=== PATIENT | female | born 1985 | race Caucasian/White ===

== ENCOUNTER 2019-06-28 12:16 | Emergency (ER) | payer OTHER, SELFPAY ==
--- NOTE | ~2019-06-28 | CT_ITS ---
EXAMINATION: CT abdomen pelvis wo con DATE: 06/28/2019 14:32 INDICATION: Right flank pain. Nausea. TECHNIQUE: Computed tomography (CT) of the abdomen and pelvis was performed without intravenous contr ast. Automated exposure control and iterative reconstruction technique were employed. The dose-length product was 758.13 mGy-cm. COMPARISON: None. FINDINGS: The visualized portions of the lung bases demonstrate mild atelectasis. No pleural effusion . The heart size is normal. No pericardial effusion. The liver, spleen, pancreas, adrenal glands, and kidneys are normal. There is no urolithiasis. There are changes of cholecystectomy. There are no dil ated loops of bowel. The appendix is normal. There are no pathologically enlarged lymph nodes. There is no free intraperitoneal fluid. There is mild thoracolumbar spondylosis. IMPRESSION: 1. No etiology for the patient's symptoms. Reviewed, dictated and finalized at location A. ANICAL DRAFTER
--- NOTE | ~2019-06-28 | XR_ITS ---
EXAMINATION: XR abdomen/kub 1V EXAM DATE: 06/28/2019 13:14 INDICATION: Right flank pain. TECHNIQUE: Frontal projection(s) of the abdomen for interpretation. There is no prior study for hiral garcia. FINDINGS: There is expected amount of colonic stool and gas. No small bowel dilation, nonobstructiv e bowel gas pattern. Calcifications in the pelvis are believed to be phleboliths. There is no orga nomegaly suspected. The bones are unremarkable. There are cholecystectomy clips. IMPRESSION: Pelvic calcifications, likely phleboliths. Reviewed, dictated and finalized at location B. ING MILL OPERATOR
[2019-06-28 12:24] VITALS: BP 149/94; PULSE 92; RESP 22; TEMP 36.5; O2SAT 100
--- NOTE | 2019-06-28 12:44 | ED.ABDPAIN ---
HPI - Abdominal Pain General Chief Complaint: Urogenital-Female Stated Complaint: right side pain Time Seen by Provider: 06/28/19 12:17 Source: patient Mode of arrival: ambulatory Limitations: no limitations History of Present Illness HPI narrative: Patient is a 34-year-old female who presents to emergency department for evaluation of right-sided abdominal pain is a 3 out of 10 pain worse with activity and movement patient denies any vomiting diarrhea vaginal discharge or urinary symptoms. Patient notes some right vaginal bleeding. Patient denies injury or trauma or similar occurrence. Patient presents per private vehicle and has not taken anything for her symptoms Related Data Allergies Allergy/AdvReac Type Severity Reaction Status Date / Time No Known Allergies Allergy Verified 06/28/19 12:32 Review of Systems Review of Systems: Narrative: CONSTITUTIONAL: Denies fever, chills, or sweats. EYES: Denies redness, or discharge. ENT: Denies rhinorrhea, congestion, sore throat, or otalgia. RESPIRATORY: Denies cough or dyspnea. GASTROINTESTINAL: Denies nausea, vomiting, or diarrhea. GENITOURINARY: Denies dysuria or hematuria. SKIN: Denies rash or itching. MUSCULOSKELETAL: Denies back pain, joint pain, or myalgia. NEUROLOGIC: Denies headache, or weakness. [facility] Surgical History Surgical History Hx of cholecystectomy Family History Family History (Updated 01/12/14 @ 07:13 by DOCTOR UNKNOWN) Mother Hypertension Grandparent Family history of malignant neoplasm Family history of heart disease in male family member before age 55 Diabetes mellitus Social History Social History Smoking status: Smoker, status unknown Alcohol intake: never Gender identity (if verbalized by the patient): Female Exam Narrative: Exam Narrative: GENERAL: Well-appearing, well-nourished, and in no acute distress. HEAD: Normocephalic, atraumatic. EYES: PERRLA and EOMI. ENT: Nares clear, no rhinorrhea or epistaxis. Mucous membranes moist. CHEST: Clear to auscultation. No respiratory distress. No wheezes rales or rhonchi HEART: Regular rate and rhythm. No murmur heard. Normal peripheral pulses. ABDOMEN: Soft, nontender, nondistended EXTREMITIES: Normal range of motion. No edema. SKIN: Warm, dry, no rash. NEURO: No focal deficits. Alert and oriented x3. Cranial nerves II through XII grossly intact. Normal speech and gait PSYCH: Normal mood and affect. Course Course Emergency Course: Patient in the room in no distress aware of case findings treatment plan and diagnosis agreeing to follow-up as directed or to return if symptoms worsen or concerns patient is afebrile nontoxic-appearing no distress felt appropriate for outpatient reevaluation provided with reasons to return Vital Signs Vital signs: Vital Signs Temperature 97.7 F 06/28/19 12:24 Pulse Rate 92 06/28/19 12:24 Respiratory Rate 22 H 06/28/19 12:24 Blood Pressure 149/94 H 06/28/19 12:24 Pulse Oximetry 100 06/28/19 12:24 Temperature 97.7 F 06/28/19 12:24 Pulse Rate 92 06/28/19 12:24 Respiratory Rate 22 H 06/28/19 12:24 Blood Pressure 149/94 H 06/28/19 12:24 Pulse Oximetry 100 06/28/19 12:24 MDM - Abdominal Pain MDM Narrative Medical decision making narrative: Patient with flank pain of uncertain etiology patient in the room in no distress at this time afebrile nontoxic-appearing no distress no high risk changes in the blood work or imaging felt appropriate for outpatient reevaluation patient provided with reasons to return Lab Data Labs: Urine Characteristics Clots Discharge Plan Discharge Clinical Impression: Acute right flank pain Patient Disposition: Home, Self-Care Condition: Stable Instructions: Antibiotic Form, Flank Pain (ED) Additional Instructions: Follow up with your primary ca
[2019-06-28 12:51] LABS: Basophils Percent Auto 0.3 % (0.2-1.2); Eosinophils Absolute Auto 0.1 K/mm3 (0-0.3); Eosinophils Percent Auto 1.7 % (0-4.4); Hemoglobin 12.7 g/dL (12.0-15.0); Immature Granulocyte Absolute 0.02 K/mm3 (0.00-0.031); Immature Granulocyte Percent A 0.3 % (0-0.5); Lymphocytes Absolute Auto 2.75 K/mm3 (0.9-3.2); Lymphocytes Percent Auto 35.1 % (18.3-44.2); Mean Corpuscular HGB Conc 32.6 g/dl (32-36); Mean Corpuscular Hemoglobin 29.4 pg (26-34); Mean Corpuscular Volume 90.3 fl (80-100); Mean Platelet Volume 9.3 fl (7.4-10.4); Monocytes Absolute Auto 0.6 K/mm3 (0.1-0.6); Monocytes Percent Auto 7.9 % (2.6-8.5); Neutrophils Absolute Auto 4.3 K/mm3 (1.3-6.7); Neutrophils Percent Auto 54.7 % (45.5-73.1); Platelet Count Result 327 k/mm3 (150-375); Red Blood Count 4.32 M/mm3 (4.2-5.4); Red Cell Distribution Width 12.3 % (11.5-14.5); White Blood Count 7.8 K/mm3 (4.5-10.0)
[2019-06-28 13:02] LABS: Add Urine Microscopic? YES; Appearance Urine Clear (Clear); Bacteria Urine Trace /hpf; Bilirubin Urine Negative (Negative); Blood Urine 1+ (Negative); Color Urine Yellow (Yellow); Glucose Urine UA Negative (Negative); Ketones Urine Negative (Negative); Leukocyte Esterase Ur Negative LEU/UL (Negative); Mucus Urine Rare /lpf; Nitrate Urine Negative (Negative); Protein Urine Negative (Negative); RBC Urine 0-2 /hpf (0-2); Specific Grav Ur 1.019 (1.001-1.035); Squamous Epithelial Cell Urine Few /hpf (Few); Urobilinogen Urine Negative mg/dL (<2.0); WBC Urine 0-3 /hpf
[2019-06-28 13:03] LABS: Alanine Aminotransferase 28 U/L (4-35); Albumin Level 4.7 g/dL (3.5-5.1); Alkaline Phosphatase 92 U/L (38-126); Aspartate Amino Transferase 24 U/L (14-36); Bilirubin,Total 0.3 mg/dL (0.2-1.3); Blood Urea Nitrogen 12 mg/dL (7-17); Calcium 9.7 mg/dL (8.4-10.2); Carbon Dioxide 27 mmol/L (22-30); Chloride 101 mmol/L (98-107); Estimated CRCL calculation 121 ml/min; Estimated Glomerular Filt Rate > 60; Glucose 95 mg/dL (65-105); Potassium 3.7 mmol/L (3.4-5.0); Sodium 139 mmol/L (137-145)
== END 2019-06-28 15:07 | disposition home or self-care (01) ==
PROVIDERS: Emergency Medicine Emergency Medical Services; Emergency Provider Emergency Medicine; PCP Family Medicine
DX: R10.9 Unspecified abdominal pain (principal)
CPT/HCPCS: 36415; 74018; 74176; 80053; 81001; 81025; 85025; 99284

== ENCOUNTER 2020-01-09 15:27 | Outpatient (CLI) | payer OTHER, SELFPAY | END 2020-01-09 15:28 | disposition home or self-care (01) | LOC: ANHSURGERY 15:28 | PROVIDERS: PCP Family Medicine; Visit Provider Obstetrics & Gynecology | DX: Z01.818 Encounter for other preprocedural examination (principal); D21.9 Benign neoplasm of connective and other soft tissue, unspecified | CPT/HCPCS: 36415; 86850; 86900; 86901 ==

== ENCOUNTER 2020-01-16 01:13 | Outpatient (CLI) | payer OTHER, SELFPAY ==
[2020-01-16 16:17] LABS: SARS-CoV-2 RNA PCR Negative
== END 2020-01-16 01:14 | disposition home or self-care (01) ==
LOC: ANHCOVIDDT 01:13
PROVIDERS: PCP Family Medicine; Visit Provider Obstetrics & Gynecology
DX: Z01.812 Encounter for preprocedural laboratory examination (principal); Z20.828 Contact with and (suspected) exposure to other viral communicable diseases
CPT/HCPCS: 87635; C9803; U0003

== ENCOUNTER 2020-01-18 00:28 | Day surgery (SDC) | payer OTHER, SELFPAY ==
[2020-01-04 13:37] VITALS: BMI 35.2
[2020-01-18] VITALS (12 sets, daily range): BP systolic 111–138; BP diastolic 66–79; PULSE 67–92; RESP 12–16; TEMP 36.3–37.1; O2SAT 93–100
--- NOTE | 2020-01-18 08:04 | PM.IMHP ---
H&P: HPI History of Present Illness Date/Time: 01/18/20 08:04 Chief complaint: pain, dyspareunia, fibroid Narrative: 34 y/o with a myomatous uterus and chronic, recurrent pelvic pain. She has had a tubal ligation and endometrial ablation. She has no vaginal bleeding. However, her episodes of pain are becoming more frequent. Most recently, she had a sharp pain in the RLQ which prompted a CT. Appendicitis was ruled out. She is interested in definitive management. Review of Systems Review of Systems: All systems reviewed & are unremarkable except as noted in HPI and below PMFSH Surgical History Surgical History H/O excision of ganglion cyst History of endometrial ablation History of tubal ligation Hx of cholecystectomy Family History Family History Mother Hypertension Grandparent Family history of malignant neoplasm Family history of heart disease in male family member before age 55 Diabetes mellitus Social History Social History Smoking packs per day: 1 Smoking cigarettes per day: 20.0 Years smoked: 8 Smoking pack-years: 8.00 Smoking status: Smoker, status unknown Tobacco type: cigarettes Additional smoking assessment comments: CURRENT VAPOR CIGARETTE X1 YR, QUIT CIGARETTES 1 YEAR AGO Alcohol intake: never Gender identity (if verbalized by the patient): Female Spiritual care concerns: No Meds Home Medications and Allergies Home Medications Medication Instructions Recorded Confirmed Type albuterol sulfate [ProAir HFA] 1 inh INHALATION QID PRN 01/04/20 01/04/20 History multivitamin 1 tablet PO DAILY 01/04/20 01/04/20 History Allergies Allergy/AdvReac Type Severity Reaction Status Date / Time No Known Allergies Allergy Unverified 01/04/20 13:30 Exam Const: Orientation/consciousness: patient oriented x3 Other: Well-developed, well-nourished female in no acute distress. Neck: Thyroid: thyroid normal Lymphatic: no lymphadenopathy noted (in neck, axilla or inguinal nodes) Resp: Effort & Inspection: normal respiratory effort Auscultation: clear to auscultation bilaterally Cardio: Rate: regular rate Rhythm: regular rhythm Heart sounds: S1 normal heart sound present and S2 normal heart sound present GI: Other: ABD: Soft, nontender, nondistended. No guarding or rebound tenderness. No hepatosplenomegaly. : General: Yes no CVA tenderness Other: External genitalia: normal female hair distribution, without lesion. Urethral meatus: no lesion, non prolapsed. Bladder: no mass, nontender Vagina: well-estrogenized, without lesion or discharge. No cystocele or rectocele. Cervix: no lesion or discharge. Uterus: small, anteverted, freely mobile, tender to deep palpation. Adnexa: no mass or tenderness. Anus/perineum: no lesions, nontender Back/Spine/Pelvis: Back: no CVA tenderness Skin: General skin exam: normal color and no rashes or lesions noted Neuro: General: patient oriented x3 Extrem: Other: Extremities: nontender with no edema Psych: Mental Status: mental status grossly normal Affect: normal affect Assessment and Plan Assessment and plan (1) Uterine myoma: Code(s): D25.9 - Leiomyoma of uterus, unspecified Status: Acute Assessment and Plan: A: Chronic, recurrent pelvic pain in the setting of a myomatous uterus, refractory to conservative management. P: We have reviewed medical vs. surgical management options. She is interested in definitive management with hysterectomy. I have offered her a TVH with bilateral salpingectomies. We will plan to leave the ovaries in situ. She understands risks of surgery to include risks of anesthesia, risks of pain, infection, bleeding, blood products, thromboembolic phenomena and damage to adjacent structures such as bowel, bladder, ureters,
[2020-01-18] MEDS: LACTATED RINGERS 1,000 ML 30 ML IV CONT ×2 (10:39→13:37)
--- NOTE | 2020-01-18 10:53 | WPDANESEPPF ---
Anes - Initial Pre Proc Eval Procedure: Operation Date: 01/18/20 12:00 Proposed Procedures p Total Vaginal Hysterectomy With Bilateral Salpingectomy - Jordan Mcclain MD Date/Time: 01/18/20 10:53 Surgeon: Jordan Mcclain MD Pre Op Diagnosis: pain, dyspareunia, fibroid Patient Data Age: 34 Gender: F Height: 5 ft 4 in Weight: 92.99 kg Last Vital Signs Temp 97.7 F 01/18/20 10:49 Pulse 77 01/18/20 10:49 BP 131/72 01/18/20 10:49 Pulse Ox 100 01/18/20 10:49 Allergies Allergy/AdvReac Type Severity Reaction Status Date / Time No Known Allergies Allergy Verified 01/18/20 10:46 Home Medications Medication Instructions Recorded Confirmed Type albuterol sulfate [ProAir HFA] 1 inh INHALATION QID PRN 01/04/20 01/18/20 History multivitamin 1 tablet PO DAILY 01/04/20 01/18/20 History Patient hx anesthesia problems: none Family hx anesthesia problems: none PMFSH Past Medical History Medical History (Updated 01/18/20 @ 10:50 by Kem Sanders MD) Asthma Surgical History Surgical History H/O excision of ganglion cyst History of endometrial ablation History of tubal ligation Hx of cholecystectomy Family History Family History Mother Hypertension Grandparent Family history of malignant neoplasm Family history of heart disease in male family member before age 55 Diabetes mellitus Social History Social History Smoking packs per day: 1 Smoking cigarettes per day: 20.0 Years smoked: 8 Smoking pack-years: 8.00 Smoking status: Smoker, status unknown Tobacco type: cigarettes Additional smoking assessment comments: CURRENT VAPOR CIGARETTE X1 YR, QUIT CIGARETTES 1 YEAR AGO Alcohol intake: never Gender identity (if verbalized by the patient): Female Spiritual care concerns: No Anes - Eval Final PreProcedure Day of Procedure 01/18/20 10:53 Patient weight: obese Heart: regular rate and rhythm Lungs: clear to auscultation Airway: Mallampati scale class II Neurological: alert and oriented Last oral intake: >/= 8 hours ASA classification: II Emergent: no Anesthetic plan: proceed Anesthesia type and monitoring: general ETT and standard monitoring Informed Consent: The patient's anesthetic plan and its attendant risks and benefits were discussed with the patient/family/POA. Questions were solicited and answers provided to the satisfaction of the patient/family/POA.
[2020-01-18] MEDS: ACETAMINOPHEN 500 MG TABLET 1000 MG PO (10:59)
[2020-01-18] MEDS: KETOROLAC 15 MG/ML VIAL (*BKC) IV PUSH (11:00)
--- NOTE | 2020-01-18 12:15 | WPDHPUPDATE1 ---
History and Physical Update Update Date/Time: 01/18/20 12:15 History and Physical has been reviewed, including an updated exam of the patient. There are NO changes in the patient's condition. Risks, benefits, and alternatives have been discussed and questions answered. Patient agrees to proceed with procedure.
[2020-01-18] MEDS: ceFAZolin 2 GM/D5W 50 ML 2 GM/50 ML BAG IVPB (12:16)
--- NOTE | 2020-01-18 13:36 | PM.PROC ---
Procedure Note - Detailed Date of procedure: 01/18/20 Pre-op diagnosis: pain, dyspareunia, fibroid Chronic pelvic pain refractory to conservative management Symptomatic fibroid uterus Post-op diagnosis: same Procedure performed: Total vaginal hysterectomy with right salpingectomy. Description of procedure: The patient was taken to the operating room where she was prepared and draped in the usual sterile fashion in the dorsal lithotomy position. The bladder was drained with red rubber catheter. A weighted speculum was placed posteriorly. A Alvina retractor was used anteriorly. The cervix was grasped with a single-tooth tenaculum. Ten mL of sterile saline was infiltrated circumferentially around the cervix to aid in tissue plane dissection. The cervix was circumscribed using electrocautery. The peritoneal cavity was entered sharply posteriorly and a long weighted speculum was placed. The uterosacral and cardinal ligaments on both sides were then clamped, transected and suture ligated using 0 Vicryl. These were tagged for later identification. The bladder was dissected off the cervix and lower uterine segment and reflected away. The LigaSure device was then used to clamp, ligate and transect the broad ligaments bilaterally. Finally, the utero-ovarian ligament, round ligament and tube complexes on both sides were able to be clamped, transected and suture ligated using 0 Vicryl. The specimen was passed off to be sent to pathology. The right sided fallopian tube was then dissected, clamped, ligated and transected using the LigaSure device and passed off the field. The left tube was not able to be visualized well, so left salpingectomy was not attempted. The pedicles were inspected and found to be hemostatic. The vaginal cuff angles were then transfixed to the ipsilateral cardinal uterosacral ligaments for support. The vaginal cuff was reapproximated using 0 Vicryl in a running, locked fashion. Hemostasis was excellent. A Enriquez catheter was placed. Vaginal packing soaked in Premarin cream was placed. Sponge, lap, needle and instrument counts were correct. The patient was awakened and taken to the recovery room in stable condition. I was present and scrubbed for the entire procedure. Implants: None Anesthesia: GETA Surgeon: Jordan Mcclain MD Estimated blood loss (mL): 50 Drains: Yes (Enriquez) Packing: Yes (Vaginal) Pathology: yes (uterus, cervix, right Fallopian tube) Complications: None Condition: stable Disposition: PACU Findings: The uterus was enlarged, obviously fibroid. The right tube demonstrated evidence of prior tubal ligation, was otherwise unremarkable. The right ovary was normal in appearance. The left tube and ovary were not able to be visualized. The left ovary was palpated and did not seem enlarged.
--- NOTE | 2020-01-18 14:32 | PC.NURSE ---
PT arrived on unit via bed unaccompanied. PT alert and awake and was oriented to room 289 and surroundings. PT introductions made and plan of care discussed per post op accounts payable technician surgery, pain management, daily care activities. PT verbalized understanding of such care.
--- NOTE | 2020-01-18 15:10 | PM.DS ---
DS: Admitting Diagnosis Admitting Diagnosis Admitting Diagnosis: Fibroid uterus Chronic pelvic pain, refractory to conservative management DS: Discharge Diagnosis Discharge Diagnosis (1) Chronic pelvic pain in female: Code(s): R10.2 - Pelvic and perineal pain; G89.29 - Other chronic pain Status: Acute (2) Uterine myoma: Code(s): D25.9 - Leiomyoma of uterus, unspecified Status: Acute DS: Data Data Completed and Pending Pending studies at discharge: Pending at discharge 01/18/20 13:18 Surgical [PTH] Routine Discharge Plan Discharge Patient Disposition: Home, Self-Care Discharge Instructions: Call or return if temperature above 100.4? F, increased abdominal pain, increased vaginal bleeding or any new problems. Stand Alone Forms: General Discharge Instructions Follow-up/Referrals: Jordan Mccalin MD [Physician] - (4 weeks) Discharge Medications: New hydrocodone-acetaminophen [Mckenzie] 5-325 mg tablet 1 - 2 tablet PO Q6H PRN (Reason: pain) Qty: 30 RF: 0 No Action multivitamin Tablet 1 tablet PO DAILY RF: 0 albuterol sulfate [ProAir HFA] 90 mcg/actuation Hfa Aerosol Inhaler 1 inh INHALATION QID PRN (Reason: Shortness Of Breath) RF: 0 Primary Care Provider: Manjinder Cortez Attending physician on admission: Jordan Mcclain
[2020-01-18] MEDS: DEXTROSE 5%/0.45% SOD CHL 1,000 ML 125 ML IV CONT (15:27)
[2020-01-18] MEDS: KETOROLAC 30 MG/ML VIAL (*BKC) IV PUSH (15:39)
[2020-01-18] MEDS: SIMETHICONE 80 MG TAB.CHEW PO (17:19)
[2020-01-18] MEDS: IBUPROFEN 600 MG TABLET PO (21:40)
[2020-01-18] MEDS: ENOXAPARIN 40 MG/0.4 ML SYRINGE SUB-Q (22:02)
[2020-01-19 00:15] VITALS: BP 134/66; PULSE 110; PULSE 85; RESP 16; TEMP 36.9; O2SAT 99
[2020-01-19 05:20] VITALS: BP 110/67; PULSE 85; RESP 16; TEMP 36.9; O2SAT 99
[2020-01-19] MEDS: IBUPROFEN 600 MG TABLET PO ×2 (05:31→12:17)
[2020-01-19 05:54] LABS: Basophils Percent Auto 0.1 % (0.2-1.2); Hematocrit 36.3 % (37.0-47.0); Immature Granulocyte Absolute 0.09 K/mm3 (0.00-0.031); Immature Granulocyte Percent A 0.5 % (0-0.5); Lymphocytes Absolute Auto 1.66 K/mm3 (0.9-3.2); Lymphocytes Percent Auto 8.8 % (18.3-44.2); Mean Corpuscular HGB Conc 33.1 g/dl (32-36); Mean Corpuscular Hemoglobin 30.2 pg (26-34); Mean Corpuscular Volume 91.4 fl (80-100); Mean Platelet Volume 9.6 fl (7.4-10.4); Monocytes Absolute Auto 1.2 K/mm3 (0.1-0.6); Monocytes Percent Auto 6.6 % (2.6-8.5); Neutrophils Absolute Auto 15.8 K/mm3 (1.3-6.7); Platelet Count Result 332 k/mm3 (150-375); Red Blood Count 3.97 M/mm3 (4.2-5.4); Red Cell Distribution Width 12.5 % (11.5-14.5); White Blood Count 18.8 K/mm3 (4.5-10.0)
[2020-01-19] MEDS: SIMETHICONE 80 MG TAB.CHEW PO (06:24)
--- NOTE | 2020-01-19 07:40 | WPDANESPN ---
Anes - Prog Note Post-Op Date/Time: 01/19/20 07:40 Cardiovascular status: normal Respiratory status: normal Airway patency: baseline Mental status: baseline Post-Op hydration status: normal Vital Signs: Last Vital Signs Temp 36.9 C 01/19/20 05:20 Pulse 85 01/19/20 05:20 Resp 16 01/19/20 05:20 BP 110/67 01/19/20 05:20 Pulse Ox 99 01/19/20 05:20 I/O: Intake & Output 01/18/20 01/18/20 01/19/20 15:59 23:59 07:59 Intake Total 750 240 Output Total 370 1650 350 Balance 380 -1410 -350 Laboratory Tests 01/19/20 05:27 01/19/20 05:27 WBC 18.8 H RBC 3.97 L Hgb 12.0 Hct 36.3 L MCV 91.4 MCH 30.2 MCHC 33.1 RDW 12.5 Plt Count 332 MPV 9.6 Immature Gran % (Auto) 0.5 Neut % (Auto) 84.0 H Lymph % (Auto) 8.8 L [place] % (Auto) 6.6 Eos % (Auto) 0.0 Baso % (Auto) 0.1 L Lymph # (Auto) 1.66 [place] # (Auto) 1.2 H Eos # (Auto) 0.0 Baso # (Auto) 0.0 Abs Immat Gran (auto) 0.09 H Absolute Neuts (auto) 15.8 H Absolute Nucleated RBC 0.0 Nucleated RBC % 0.0 Post-procedural complaints: none Patient Feedback: Patient satisfied with anesthetic care.
[2020-01-19 08:10] VITALS: BP 115/51; PULSE 72; RESP 18; TEMP 37.1; O2SAT 99
--- NOTE | 2020-01-19 09:29 | PM.GYNPNOP ---
PERIOPERATIVE ASSISTANT - A/P Postoperative Procedures: Procedures Operation Date: 01/18/20 12:00 Actual Procedures Side Surgeon p Total Vaginal Hysterectomy With Right Salpingectomy Not Applicable Jordan Mcclain MD Time Spent With Patient Time with patient: less than 15 minutes PERIOPERATIVE ASSISTANT- PN:Subj Post-Op Subjective Date/time seen: 01/19/20 09:29 Interval history: Pain OK. Tolerating diet. Voiding. Would like to go home. Exam Narrative: Exam Narrative: AVSS I/O OK ABD soft, nontender. Incisions c/d/i. EXT nontender PERIOPERATIVE ASSISTANT - PN: Obj Data Vital Signs Vital Signs: Vital Signs - 24 hr 01/18/20 10:49 01/18/20 13:37 01/18/20 13:50 Temperature 36.5 C 37.1 C Pulse Rate 77 88 76 Respiratory Rate 12 12 Blood Pressure 131/72 131/70 117/66 Pulse Oximetry 100 99 98 01/18/20 14:05 01/18/20 14:20 01/18/20 14:31 Temperature 36.3 C L 36.6 C Pulse Rate 79 89 84 Respiratory Rate 14 16 16 Blood Pressure 122/68 114/71 123/71 Pulse Oximetry 95 93 96 01/18/20 14:45 01/18/20 15:00 01/18/20 15:30 Temperature Pulse Rate 76 68 82 Respiratory Rate 16 16 Blood Pressure 118/69 112/71 119/69 Pulse Oximetry 95 96 96 01/18/20 16:00 01/18/20 17:00 01/18/20 20:00 Temperature 37.0 C Pulse Rate 67 78 92 Respiratory Rate 16 Blood Pressure 111/71 124/76 138/79 Pulse Oximetry 97 99 99 01/19/20 00:15 01/19/20 05:20 01/19/20 08:10 Temperature 36.9 C 36.9 C 37.1 C Pulse Rate 85 85 72 Respiratory Rate 16 16 18 Blood Pressure 134/66 110/67 115/51 L Pulse Oximetry 99 99 99 Intake/Output Intake/Output: Intake & Output 01/16/20 01/17/20 01/18/20 01/19/20 23:59 23:59 23:59 23:59 Intake Total 990 Output Total 2019 350 Balance -1030 -350 Meds/Results Medications: Active Medications Generic Name Dose Route Start Last Admin Trade Name Freq PRN Reason Stop Dose Admin Hydrocodone Bitart/Acetaminophen 1 tab 01/18/20 14:46 01/19/20 06:24 Silver 5-325 Mg PO 1 tab Q3H PRN Administration Pain Rated 5 or Less Hydrocodone Bitart/Acetaminophen 1 tab 01/18/20 14:46 Silver 10-325 Mg PO Q3H PRN Pain Rated 6 or Greater Albuterol 1 puff 01/18/20 14:46 Proventil Hfa INHALATION QID PRN Shortness Of Breath Enoxaparin Sodium 40 mg 01/18/20 21:00 01/18/20 22:02 Lovenox SUB-Q 40 mg HS JABARI Administration Ibuprofen 600 mg 01/18/20 14:46 01/19/20 05:31 Motrin PO 600 mg Q6H PRN Administration Cramping Ketorolac Tromethamine 30 mg 01/18/20 14:46 01/18/20 15:39 Toradol Inj IV PUSH 01/23/20 14:47 30 mg Q6H PRN Administration Pain Rated 4-6 Morphine Sulfate 4 mg 01/18/20 14:46 Morphine Sulfate Inj IV PUSH Q4H PRN Severe breakthrough pain Naloxone HCl 0.1 mg 01/18/20 14:46 Narcan IV PUSH Q2M PRN Respiratory rate less than 10 Simethicone 80 mg 01/18/20 14:46 01/19/20 06:24 Mylicon PO 80 mg Q2H PRN Administration Gas Labs CBC & Chem 7: 01/19/20 05:27 Labs: Laboratory Results - last 24 hr 01/19/20 05:27 WBC 18.8 H RBC 3.97 L Hgb 12.0 Hct 36.3 L MCV 91.4 MCH 30.2 MCHC 33.1 RDW 12.5 Plt Count 332 MPV 9.6 Immature Gran % (Auto) 0.5 Neut % (Auto) 84.0 H Lymph % (Auto) 8.8 L [place] % (Auto) 6.6 Eos % (Auto) 0.0 Baso % (Auto) 0.1 L Lymph # (Auto) 1.66 [place] # (Auto) 1.2 H Eos # (Auto) 0.0 Baso # (Auto) 0.0 Abs Immat Gran (auto) 0.09 H Absolute Neuts (auto) 15.8 H Absolute Nucleated RBC 0.0 Nucleated RBC % 0.0
== END 2020-01-19 13:01 | disposition home or self-care (01) ==
LOC: ANHSURGERY 10:03 → ANHOB2 14:10
PROVIDERS: PCP Family Medicine; Visit Provider Obstetrics & Gynecology
PROC: (CPT 58260; principal; 2020-01-18 12:00)
DX: N72 Inflammatory disease of cervix uteri (principal); N87.9 Dysplasia of cervix uteri, unspecified; D25.9 Leiomyoma of uterus, unspecified; N83.8 Other noninflammatory disorders of ovary, fallopian tube and broad ligament; R10.2 Pelvic and perineal pain; N94.10 Unspecified dyspareunia; G89.29 Other chronic pain; F17.290 Nicotine dependence, other tobacco product, uncomplicated
CPT/HCPCS: 58262; 36415; 85025; 88307; 99199; A9270; J0330; J0690; J1100; J1170; J1650; J1885; J2250; J2405; J2704; J3010; J7030; J7120

== ENCOUNTER 2020-05-16 12:18 | Outpatient (CLI) | payer OTHER, SELFPAY ==
--- NOTE | ~2020-05-16 | XR_ITS ---
EXAMINATION: XR chest 2V EXAM DATE: 05/16/2020 12:34 INDICATION: R05 - Cough . TECHNIQUE: Frontal and lateral projections of the chest obtained and reviewed. Comparison is made to prior examination from 08/21/2018. FINDINGS: The lungs are clear. There are no pleural effusions. The cardiomediastinal silhouette is within normal limits. There is no pneumothorax suspected. The bones and soft tissues are unremarkab le. There are cholecystectomy clips. There is no significant interval change. IMPRESSION: No acute cardiopulmonary findings. Reviewed, dictated and finalized at location B. ARCH EDITOR
== END 2020-05-16 12:19 | disposition home or self-care (01) ==
PROVIDERS: PCP Family Medicine; Visit Provider Nurse Practitioner Family
DX: R05 Cough (principal)
CPT/HCPCS: 71046

== ENCOUNTER 2020-05-28 14:26 | Outpatient (CLI) | payer OTHER, SELFPAY ==
--- NOTE | ~2020-05-28 | CT_ITS ---
EXAMINATION: CTA chest PE protocol DATE: 05/28/2020 14:47 INDICATION: Chest pain. Shortness of breath and cough. COVID-19 positive in April. TECHNIQUE: Computed tomography angiography (CTA) of the chest was performed with 100 mL Omnipaque-350 intravenous contrast timed to evaluate the pulmonary arteries. Coronal maximum intensity projection 3D-reconstructions were created by the technologist. Automated exposure control and iterative reconst ruction technique were employed. The dose-length product was 503.44 mGy-cm. COMPARISON: CT abdomen and pelvis 06/28/2019 FINDINGS: The lungs demonstrate mild atelectasis. No pleural effusion. The heart size is normal. No p ericardial effusion. There is no pulmonary embolus. There is mild thoracic spondylosis. IMPRESSION: 1. No pulmonary embolus. Reviewed, dictated and finalized at location A. REPAIRER IMPRESSION: 1. No pulmonary embolus.
[2020-05-28 15:25] LABS: Basophils Percent Auto 0.2 % (0.2-1.2); Eosinophils Absolute Auto 0.1 K/mm3 (0-0.3); Eosinophils Percent Auto 1.4 % (0-4.4); Hematocrit 40.1 % (37.0-47.0); Hemoglobin 13.1 g/dL (12.0-15.0); Immature Granulocyte Absolute 0.04 K/mm3 (0.00-0.031); Immature Granulocyte Percent A 0.4 % (0-0.5); Lymphocytes Absolute Auto 3.09 K/mm3 (0.9-3.2); Lymphocytes Percent Auto 33.2 % (18.3-44.2); Mean Corpuscular HGB Conc 32.7 g/dl (32-36); Mean Corpuscular Hemoglobin 29.8 pg (26-34); Mean Corpuscular Volume 91.3 fl (80-100); Monocytes Percent Auto 10.2 % (2.6-8.5); Neutrophils Absolute Auto 5.1 K/mm3 (1.3-6.7); Neutrophils Percent Auto 54.6 % (45.5-73.1); Platelet Count Result 326 k/mm3 (150-375); Red Blood Count 4.39 M/mm3 (4.2-5.4); Red Cell Distribution Width 13.1 % (11.5-14.5); White Blood Count 9.3 K/mm3 (4.5-10.0)
[2020-05-28 15:37] LABS: Anion Gap 7 mmol/L (8-16); Blood Urea Nitrogen 12 mg/dL (7-17); CRP 0.9 mg/dL (<1.0); Calcium 9.3 mg/dL (8.4-10.2); Carbon Dioxide 28 mmol/L (22-30); Chloride 103 mmol/L (98-107); Estimated Glomerular Filt Rate > 60; Glucose 96 mg/dL (65-105); Potassium 4.4 mmol/L (3.4-5.0); Sodium 138 mmol/L (137-145)
[2020-05-28 15:38] LABS: D Dimer 0.27 ug/mL (<0.48)
[2020-05-28 16:19] LABS: Erythrocyte Sedimentation Rate 20 mm/hr (0-20)
== END 2020-05-28 14:27 | disposition home or self-care (01) ==
PROVIDERS: PCP Family Medicine; Visit Provider Physician Assistant Medical
DX: R00.0 Tachycardia, unspecified (principal); R06.02 Shortness of breath; U07.1 COVID-19
CPT/HCPCS: 36415; 71275; 80048; 85025; 85380; 85652; 86140; Q9967

== ENCOUNTER 2020-08-24 08:37 | Emergency (ER) | payer OTHER, SELFPAY ==
--- NOTE | ~2020-08-24 | XR_ITS ---
EXAMINATION: XR hand RT min 3V EXAM DATE: 08/24/2020 09:02 INDICATION: Initial encounter following injury, with pain of the right hand, 5th metacarpal. TECHNIQUE: Right hand frontal, lateral and oblique projections obtained and reviewed. Comparison is m hanna to prior examination from 08/21/2018. FINDINGS: Right metacarpal bones are unremarkable. There are no acute fractures or dislocations iden tified. There is no subcutaneous gas. The soft tissue is unremarkable. There are no radiopaque fo reign bodies. IMPRESSION: No acute osseous findings. Reviewed, dictated and finalized at location A. IMPRESSION: No acute osseous findings.
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
[2020-08-24 08:54] VITALS: BP 143/87; PULSE 83; RESP 16; TEMP 36.2; O2SAT 99
== END 2020-08-24 09:23 | disposition home or self-care (01) ==
PROVIDERS: Emergency Provider Nurse Practitioner; PCP Family Medicine
DX: S60.221A Contusion of right hand, initial encounter (principal); V87.9XXA Person injured in other specified (collision)(noncollision) transport accidents involving nonmotor vehicle (traffic), initial encounter; J45.909 Unspecified asthma, uncomplicated; F17.200 Nicotine dependence, unspecified, uncomplicated
CPT/HCPCS: 73130; 99213; G0463

== ENCOUNTER 2020-09-05 10:26 | Emergency (ER) | payer OTHER, SELFPAY ==
--- NOTE | ~2020-09-05 | XR_ITS ---
XR knee RT 3V DATE: 09/05/2020 10:46 INDICATION: Fall yesterday. Anterior right knee pain TECHNIQUE: [place], crosstable lateral and AP views COMPARISON: None FINDINGS: No fracture or dislocation or joint effusion. No periosteal reaction or bone destruction. N o radiopaque intra-articular loose body or chondrocalcinosis. Joint spaces are preserved. IMPRESSION: Negative Reviewed, dictated and finalized at location A. IMPRESSION: Negative
[2020-09-05 10:35] VITALS: BP 151/91; PULSE 101; RESP 12; TEMP 36.8; O2SAT 99
--- NOTE | 2020-09-05 10:38 | ED.LOWEXIN ---
HPI - Extremity Injury (Lower) General Chief Complaint: Extremity Injury, Lower Stated Complaint: FALL/R KNEE PAIN Source: patient Mode of arrival: ambulatory Limitations: no limitations History of Present Illness HPI Narrative: Patient is a 35 year old female who presents with complaints of right knee pain after fall. Patient reports sliding and falling on hardwood floor yesterday injuring knee. She reports tenderness with palpation and mild swelling. She denies taking over the counter pain medication. She denies significant medical history. She denies other injuries. MD complaint: knee injury Related Data Home Medications Medication Instructions Recorded Confirmed penicillin V potassium 1 mg PO Q6-12H 08/24/20 08/24/20 Allergies Allergy/AdvReac Type Severity Reaction Status Date / Time No Known Allergies Allergy Verified 08/31/20 08:34 Review of Systems Review of Systems: Narrative: CONSTITUTIONAL: Denies fever, chills, or sweats. EYES: Denies visual changes, redness, or discharge. ENT: Denies rhinorrhea, congestion, sore throat, or otalgia. CARDIOVASCULAR: Denies chest pain, palpitations, or edema. RESPIRATORY: Denies cough or dyspnea. GASTROINTESTINAL: Denies abdominal pain, nausea, vomiting, or diarrhea. GENITOURINARY: Denies dysuria or hematuria. SKIN: Denies rash or itching. MUSCULOSKELETAL: Reports right knee pain NEUROLOGIC: Denies headache, numbness, dizziness, or weakness. PSYCHIATRIC: Denies anxiety or depression. [facility] Past Medical History Medical History Asthma Surgical History Surgical History H/O excision of ganglion cyst History of endometrial ablation History of tubal ligation Hx of cholecystectomy Family History Family History Mother Hypertension Grandparent Family history of malignant neoplasm Family history of heart disease in male family member before age 55 Diabetes mellitus Social History Social History Smoking packs per day: 1 Smoking cigarettes per day: 20.0 Years smoked: 8 Smoking pack-years: 8.00 Smoking status: Former smoker Tobacco type: cigarettes Second hand tobacco smoke exposure: No Additional smoking assessment comments: CURRENT VAPOR CIGARETTE X1 YR, QUIT CIGARETTES 1 YEAR AGO Alcohol intake: never Substance use: never Substance use type: does not use Gender identity (if verbalized by the patient): Female Spiritual care concerns: No Comments At the time of signature, I have reviewed and agree with nursing past medical, surgical, social, and family history unless otherwise noted. Please see nursing chart for further information. There is no relevant family history pertinent to the presenting complaint. Exam Narrative: Exam Narrative: GENERAL: Well-appearing, well-nourished, and in no acute distress. HEAD: Normocephalic, atraumatic. EYES: EOMI. No redness or drainage. ENT: Mucous membranes pink and moist. CHEST: No respiratory distress. HEART: Regular rate and rhythm. EXTREMITIES: Mild edema to right knee, full range of motion small amount of ecchymosis noted. Tenderness with palpation SKIN: Warm, dry, no rash. NEURO: No focal deficits. Alert and oriented x3. Gait steady. PSYCH: Normal affect. No signs of depression or anxiety. Course Vital Signs Vital signs: Vital Signs Temperature 36.8 C 09/05/20 10:35 Pulse Rate 101 H 09/05/20 10:35 Respiratory Rate 12 09/05/20 10:35 Blood Pressure 151/91 H 09/05/20 10:35 Pulse Oximetry 99 09/05/20 10:35 Temperature 36.8 C 09/05/20 10:35 Pulse Rate 101 H 09/05/20 10:35 Respiratory Rate 12 09/05/20 10:35 Blood Pressure 151/91 H 09/05/20 10:35 Pulse Oximetry 99 09/05/20 10:35 Reviewed-patient is informed that they may have pre-hyp
== END 2020-09-05 11:09 | disposition home or self-care (01) ==
PROVIDERS: Emergency Provider Nurse Practitioner; PCP Family Medicine
DX: S80.01XA Contusion of right knee, initial encounter (principal); W01.0XXA Fall on same level from slipping, tripping and stumbling without subsequent striking against object, initial encounter; J45.909 Unspecified asthma, uncomplicated; F17.200 Nicotine dependence, unspecified, uncomplicated
CPT/HCPCS: 73562; 99213; G0463

== ENCOUNTER 2021-01-04 09:39 | Outpatient (CLI) | payer OTHER, MEDICAID, SELFPAY ==
--- NOTE | ~2021-01-04 | XR_ITS ---
XR abdomen/kub 1V 01/04/2021 09:59 INDICATION: Bilateral flank pain TECHNIQUE: KUB COMPARISON: 06/28/2019 FINDINGS: Bowel gas pattern is normal. There is no evidence of free air, mass, organomegaly, ascites or obstruction. No abnormal calculi are seen. The bones appear intact. IMPRESSION: 1: No acute abdominal abnormality identified. Reviewed, dictated and finalized at location A.
== END 2021-01-04 09:40 | disposition home or self-care (01) ==
PROVIDERS: PCP Family Medicine; Visit Provider Physician Assistant Medical
DX: R10.9 Unspecified abdominal pain (principal)
CPT/HCPCS: 74018

== ENCOUNTER 2021-01-10 10:13 | Outpatient (CLI) | payer OTHER, MEDICAID, SELFPAY ==
--- NOTE | 2021-01-10 11:00 | NEURO_ITS ---
PATIENT NUMBER; [id number] IMPRESSION: # Complans of numbness of upper extremities. # Normal nerve conduction studies. # No Carpal Tunnel Syndrome. # No ulnar neuropathy. # Normal needle exam. # Clinical correlation reommended. Nerve Conduction Studies Anti Sensory Summary Table Stim Site NR Peak (ms) P-T Amp (?V) Site1 Site2 Delta-P (ms) Dist (cm) Jack (m/s) Left Median Anti Sensory (2-3nd Digit) Wrist 2.8 112.1 Wrist 2-3nd Digit 2.8 14.0 50 Wrist 2.7 59.1 Wrist 2-3nd Digit 2.8 14.0 50 Right Median Anti Sensory (2-3nd Digit) Wrist 2.8 55.4 Wrist 2-3nd Digit 2.8 14.0 50 Wrist 2.7 79.7 Wrist 2-3nd Digit 2.8 14.0 50 Left Radial Anti Sensory (Base 1st Digit) Wrist 1.7 36.0 Wrist Base 1st Digit 1.7 0.0 Right Radial Anti Sensory (Base 1st Digit) Wrist 2.0 27.0 Wrist Base 1st Digit 2.0 0.0 Left Ulnar Anti Sensory (5th Digit) Wrist 2.0 89.1 Wrist 5th Digit 2.0 14.0 70 Right Ulnar Anti Sensory (5th Digit) Wrist 2.1 105.6 Wrist 5th Digit 2.1 14.0 67 Motor Summary Table Stim Site NR Onset (ms) O-P Amp (mV) Site1 Site2 Delta-0 (ms) Dist (cm) Jack (m/s) Left Median Motor (Abd Poll Brev) Wrist 3.7 5.3 Elbow Wrist 3.7 25.0 68 Elbow 7.4 5.3 Right Median Motor (Abd Poll Brev) Wrist 2.7 5.8 Elbow Wrist 4.6 27.0 59 Elbow 7.3 5.2 Left Ulnar Motor (Abd Dig Minimi) Wrist 2.5 5.6 A Elbow Wrist 3.6 26.0 72 A Elbow 6.1 5.3 Right Ulnar Motor (Abd Dig Minimi) Wrist 3.0 3.2 A Elbow Wrist 4.3 27.0 63 A Elbow 7.3 2.6 F Wave Studies NR F-Lat (ms) L-R F-Lat (ms) Left Median (Mrkrs) (Abd Poll Brev) 26.95 1.89 Right Median (Mrkrs) (Abd Poll Brev) 25.06 1.89 Left Ulnar (Mrkrs) (Abd Dig Min) 24.84 0.23 Right Ulnar (Mrkrs) (Abd Dig Min) 25.08 0.23 EMG Side Muscle Nerve Root Ins Act Fibs Amp Dur Recrt Comment Right 1stDorInt Ulnar C8-T1 Nml Nml Nml Nml Nml Right Ext Indicis Radial (Post Int) C7-8 Nml Nml Nml Nml Nml Right Ext Digitorum Radial (Post Int) C7-8 Nml Nml Nml Nml Nml Right BrachioRad Radial C5-6 Nml Nml Nml Nml Nml Right PronatorTeres Median C6-7 Nml Nml Nml Nml Nml Right Abd Poll Brev Median C8-T1 Nml Nml Nml Nml Nml Left 1stDorInt Ulnar C8-T1 Nml Nml Nml Nml Nml Left Ext Indicis Radial (Post Int) C7-8 Nml Nml Nml Nml Nml Left Ext Digitorum Radial (Post Int) C7-8 Nml Nml Nml Nml Nml Left BrachioRad Radial C5-6 Nml Nml Nml Nml Nml Left PronatorTeres Median C6-7 Nml Nml Nml Nml Nml Left Abd Poll Brev Median C8-T1 Nml Nml Nml Nml Nml MTDD
== END 2021-01-10 10:14 | disposition home or self-care (01) ==
PROVIDERS: PCP Family Medicine; Visit Provider Physician Assistant Medical
DX: R20.0 Anesthesia of skin (principal)
CPT/HCPCS: 95886; 95911

== ENCOUNTER 2022-03-31 12:56 | Emergency (ER) | payer OTHER, SELFPAY ==
--- NOTE | 2022-03-31 13:03 | ED.URI ---
HPI - URI/Sore Throat General Chief Complaint: Upper Respiratory Infection Stated Complaint: Sore Throat/Congestion Time Seen by Provider: 03/31/22 13:03 Source: patient and RN notes reviewed History of Present Illness HPI Narrative: patient is a 36-year-old female who presents to urgent care with complaints of sinus congestion, sore throat, watery eyes. Patient states started in her chest on and is now moved to her head. Patient states her son's been sick for approximately 2 weeks and he was negative for COVID a and flu. Patient states that she is concerned about her sore throat. Denies any recent fevers. States she has been taking DayQuil and NyQuil. No other acute complaints. No acute distress noted. Patient aware of plan of care. Some parts of this dictation were generated by voice recognition software and may contain typographical and/or grammatical inaccuracies. Related Data Allergies Allergy/AdvReac Type Severity Reaction Status Date / Time No Known Allergies Allergy Verified 02/10/22 11:25 Review of Systems Review of Systems: CONSTITUTIONAL: Denies fever, chills, or sweats. EYES: Reports a watery eyes ENT: reports rhinorrhea, congestion, sore throat CARDIOVASCULAR: Denies chest pain, palpitations, or edema. RESPIRATORY: Denies cough or dyspnea. GASTROINTESTINAL: Denies abdominal pain, nausea, vomiting, or diarrhea. GENITOURINARY: Denies dysuria or hematuria. SKIN: Denies rash or itching. MUSCULOSKELETAL: Denies back pain, joint pain, or myalgia. NEUROLOGIC: Denies headache, numbness, or weakness. All other systems reviewed are negative, except as documented in HPI. [facility] Past Medical History Medical History Asthma BMI 37.0-37.9, adult Surgical History Surgical History H/O excision of ganglion cyst History of endometrial ablation History of tubal ligation Hx of cholecystectomy Family History Family History Mother Hypertension Bone cancer Grandparent Family history of malignant neoplasm Family history of heart disease in male family member before age 55 Diabetes mellitus Father No problems noted. Sibling No problems noted. Social History Social History Smoking packs per day: 1 Smoking cigarettes per day: 20.0 Years smoked: 8 Smoking pack-years: 8.00 Smoking status: Former smoker Tobacco type: cigarettes Second hand tobacco smoke exposure: No Additional smoking assessment comments: Quit VAPOR CIGARETTE X1 YR, QUIT CIGARETTES 1 YEAR AGO Alcohol intake: former Substance use: never Substance use type: does not use Additional occupation/education comments: [employer] Gender identity (if verbalized by the patient): Female Spiritual care concerns: No Comments At the time of my signature, I reviewed and agree with the nursing past medical, surgical, social, and family history. There is no relevant family history pertinent to the patient complaint. Exam Narrative: GENERAL: This is a well-nourished, well-developed patient, in no apparent distress. HEAD: normocephalic, atraumatic. EYES: PERRL. Sclera clear/white. Vision is grossly intact. EARS: External ears normal, auditory canals clear and with clear drainage, TMs normal without perforation. Hearing grossly intact. NOSE: External nose normal with no obvious nasal discharge, bilateral erythema nares with clear rhinorrhea THROAT: Mucous membranes moist, posterior pharynx clear. mild postnasal drainage NECK: Neck supple, non-tender without lymphadenopathy CARDIOVASCULAR: Regular rate and rhythm without murmurs, gallops, or rubs. RESPIRATORY: Clear to auscultation. Breath sounds equal bilaterally. No wheezes, rales, or rhonchi. SKIN: warm, intact with no suspicious lesions or r
[2022-03-31 13:04] VITALS: BP 142/95; PULSE 97; RESP 20; TEMP 36.7; O2SAT 99
== END 2022-03-31 13:31 | disposition home or self-care (01) ==
PROVIDERS: Emergency Provider Nurse Practitioner Family; PCP Family Medicine
DX: J02.9 Acute pharyngitis, unspecified (principal); Z87.891 Personal history of nicotine dependence; J45.909 Unspecified asthma, uncomplicated
CPT/HCPCS: 87081; 87880; 99213; G0463

== ENCOUNTER 2022-07-14 12:18 | Outpatient (CLI) | payer OTHER, SELFPAY ==
--- NOTE | ~2022-07-14 | XR_ITS ---
XR_CERV2-3V_CR 07/14/2022 12:39 Indication: Cervicalgia. Right-sided neck pain. Procedure: 4 views cervical spine Comparison: 08/04/2009 Findings: Straightening of normal cervical lordosis. There is degenerative disc disease and endplate hypertrophy at C3-4, C4-5, C5-6. No prevertebral soft tissue swelling. Mild multilevel uncinate hyper trophy. No prevertebral soft tissue swelling. Impression: 1: Moderate cervical spondylosis. Reviewed, dictated and finalized at location B. OW FILLER Impression: 1: Moderate cervical spondylosis.
== END 2022-07-14 12:19 | disposition home or self-care (01) ==
PROVIDERS: PCP Family Medicine; Visit Provider Physician Assistant Medical
DX: M47.892 Other spondylosis, cervical region (principal)
CPT/HCPCS: 72040

== ENCOUNTER 2022-07-31 16:45 | Outpatient (CLI) | payer OTHER, SELFPAY ==
--- NOTE | ~2022-07-31 | MR_ITS ---
MRI of the brain Clinical History: Headache Technique: Axial and sagittal T1-weighted images were acquired. These were followed by axial T2-weigh geetha, diffusion weighted, gradient, and FLAIR images. Following intravenous administration of 19 cc Mu ltiHance gadolinium, T1-weighted fat-sat imaging was performed in the axial and coronal planes. COMPARISON: 11/27/2010 Findings: No abnormal signal seen in the brain parenchyma. No acute infarct, intracranial hemorrhage, or mass lesion. Ventricles and subarachnoid spaces are unremarkable. Orbits are unremarkable. Paranasal sinuses and m astoid air cells are clear. Major intracranial flow voids appear intact. Sagittal midline structures are intact. There is mild ventral cord flattening/compression at C3-C4 re lated to disc osteophyte complex. No abnormal postcontrast enhancement identified. IMPRESSION: No intracranial abnormality. Mild ventral cord flattening/compression at C3-C4 related disc osteophyte complex. Reviewed, dictated and finalized at [facility]. IMPRESSION: No intracranial abnormality. Mild ventral cord flattening/compression at C3-C4 related disc osteophyte compl ex.
== END 2022-07-31 16:46 | disposition home or self-care (01) ==
LOC: ANHIMG 16:47
PROVIDERS: PCP Family Medicine; Visit Provider Physician Assistant Medical
DX: R51.9 Headache, unspecified (principal); R25.1 Tremor, unspecified; R42 Dizziness and giddiness
CPT/HCPCS: 70553; A9577

== ENCOUNTER 2022-09-24 06:35 | Outpatient (CLI) | payer OTHER, SELFPAY ==
--- NOTE | ~2022-09-24 | MR_ITS ---
MRI of the cervical spine Clinical History: Cord compression Technique: Axial T2-weighted and gradient images, and sagittal T1-weighted, T2-weighted, and STIR isabela ges were acquired. COMPARISON: 08/28/2014 Findings: There is no fracture or subluxation of the cervical spine. Osseous alignment is unchanged. No suspicious bone marrow signal abnormality seen. At C2-C3, there is no disc bulge or herniation. No spinal canal stenosis, cord compression, or neural foraminal narrowing. At C3-C4, there is diffuse disc osteophyte complex resulting in mild canal stenosis and mild ventral cord flattening/compression. There is mild bilateral neural foraminal narrowing. At C4-C5, there is disc osteophyte complex resulting in mild canal stenosis but no anant cord reginald bhupinder. Bilateral neural foramina are preserved. At C5-C6, there is disc osteophyte complex resulting in mild flattening the ventral cord. There is bi lateral neural foraminal narrowing. At C6-C7, there is no significant disc bulge or herniation. No spinal canal stenosis or cord compress ion. There is probable left neural foraminal narrowing. Right neural foramen preserved. No abnormal signal seen in the spinal cord. Paravertebral soft tissues are unremarkable. Impression: Mild ventral cord flattening/compression at C3-C4 and C5-C6, related to disc osteophyte complexes. Mild canal stenosis at C4-C5 without anant cord compression. Mild bilateral neural foraminal narrowing at C3-C4 and C5-C6. Reviewed, dictated and finalized at [facility]. Impression: Mild ventral cord flattening/compression at C3-C4 and C5-C6, related to disc os teophyte complexes. Mild canal stenosis at C4-C5 without anant cord compression. Mild bilateral neural foraminal narrowing at C3-C4 and C5-C6.
== END 2022-09-24 06:36 | disposition home or self-care (01) ==
PROVIDERS: PCP Family Medicine; Visit Provider Neurological Surgery
DX: G95.9 Disease of spinal cord, unspecified (principal); M54.12 Radiculopathy, cervical region; R93.89 Abnormal findings on diagnostic imaging of other specified body structures
CPT/HCPCS: 72141

== ENCOUNTER 2022-10-06 11:38 | Emergency (ER) | payer OTHER, SELFPAY ==
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
[2022-10-06 12:05] VITALS: BP 165/92; PULSE 93; RESP 18; TEMP 36.7; O2SAT 99
--- NOTE | 2022-10-06 12:09 | ECG_ITS ---
Measurements Intervals [employer] Rate: 89 P: 19 TN: 144 QRS: 18 QRSD: 86 T: 22 QT: 342 QTc: 418 Interpretive Statements SINUS RHYTHM MINIMAL Q WAVES- INFERIOR LEADS BASELINE ARTIFACT- V5-V6 BORDERLINE ECG NO PREVIOUS ECG AVAILABLE FOR COMPARISON Electronically Signed On 10-06-2022 12:42:46 CDT by Michael Romero D.O.
[2022-10-06 14:33] VITALS: BP 142/93; PULSE 106; RESP 18; O2SAT 100
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
[2022-10-06] MEDS: KETOROLAC (*BKC) 60 MG/2 ML VIAL IM (14:51)
[2022-10-06 15:47] VITALS: BP 153/91; PULSE 92; RESP 18; O2SAT 100
== END 2022-10-06 17:45 | disposition home or self-care (01) ==
PROVIDERS: Emergency Provider Emergency Medicine; PCP Family Medicine
DX: S63.501A Unspecified sprain of right wrist, initial encounter (principal); R07.89 Other chest pain; M25.511 Pain in right shoulder; J45.909 Unspecified asthma, uncomplicated; V43.52XA Car driver injured in collision with other type car in traffic accident, initial encounter
CPT/HCPCS: 71046; 73030; 73110; 93005; 96372; 99284; J1885

== ENCOUNTER 2023-01-06 13:49 | Outpatient (CLI) | payer OTHER, SELFPAY ==
--- NOTE | ~2023-01-06 | XR_ITS ---
EXAMINATION: XR lumbar spine 2-3V DATE: 01/06/2023 14:13 INDICATION: Low back pain TECHNIQUE: Anteroposterior and lateral views of the lumbar spine, and cone-down lateral view of the l umbosacral junction were obtained. COMPARISON: None. FINDINGS: No fracture, dislocation, or subluxation. The vertebral body heights, alignment, and interv ertebral disc spaces are normal. The paravertebral soft tissues are unremarkable. There is mild facet joint osteoarthritis of the lower lumbar spine. Surgical clips in the right upper quadrant are likely from prior cholecystectomy. IMPRESSION: 1. Mild lower lumbar spondylosis without acute findings. Reviewed, dictated and finalized at location A.
== END 2023-01-06 13:50 | disposition home or self-care (01) ==
LOC: ANHIMG 13:53
PROVIDERS: PCP Family Medicine; Visit Provider Nurse Practitioner Family
DX: M47.896 Other spondylosis, lumbar region (principal)
CPT/HCPCS: 72100

== ENCOUNTER 2023-02-02 16:02 | Outpatient (CLI) | payer OTHER, SELFPAY ==
--- NOTE | ~2023-02-02 | CT_ITS ---
EXAMINATION: CT cervical spine wo con DATE: 02/02/2023 16:21 INDICATION: Disease of spinal cord, unspecified. TECHNIQUE: Computed tomography (CT) of the cervical spine was performed without intravenous contrast. Automated exposure control and iterative reconstruction technique were employed. The dose-length pro duct was 397.32 mGy-cm. COMPARISON: Cervical spine MRI 09/24/2022 FINDINGS: There is kyphosis of cervical spine. Vertebral body heights are normal. There is moderately decreased disc height at C3-C4, mildly decreased disc height at C4-C5, and moderately decreased disc height at C5-C6. The following disc levels are specifically discussed: C2-C3: There is no uncovertebral joint osteoarthritis. There is no facet joint osteoarthritis. There is no neural foraminal stenosis. There is no central canal stenosis. C3-C4: There is severe bilateral uncovertebral joint osteoarthritis. There is mild bilateral facet adarsh int osteoarthritis. There is mild bilateral neural foraminal stenosis. There is mild central canal st enosis. C4-C5: There is moderate right and severe left uncovertebral joint osteoarthritis. There is no facet joint osteoarthritis. There is mild bilateral neural foraminal stenosis. There is mild central canal stenosis. C5-C6: There is severe bilateral uncovertebral joint osteoarthritis. There is no facet joint osteoart hritis. There is mild bilateral neural foraminal stenosis. There is mild central canal stenosis. C6-C7: There is no uncovertebral joint osteoarthritis. There is no facet joint osteoarthritis. There is no neural foraminal stenosis. There is no central canal stenosis. C7-T1: There is no uncovertebral joint osteoarthritis. There is severe bilateral facet joint osteoart hritis. There is mild bilateral neural foraminal stenosis. There is no central canal stenosis. IMPRESSION: 1. Moderate cervical spondylosis, stable from 09/24/2022. Reviewed, dictated and finalized at location E.
== END 2023-02-02 16:03 | disposition home or self-care (01) ==
PROVIDERS: PCP Family Medicine; Visit Provider Neurological Surgery
DX: G95.9 Disease of spinal cord, unspecified (principal); M47.22 Other spondylosis with radiculopathy, cervical region
CPT/HCPCS: 72125

== ENCOUNTER 2023-05-06 13:15 | Outpatient (RCR) | payer OTHER, SELFPAY ==
--- NOTE | 2023-03-18 09:03 | OPREHPOC ---
Outpatient Therapy Plan of Care This is a Multidisciplinary Plan of Care that may contain components documented by all disciplines (PT, OT, and ST.) PT Problem 1 PT Problem #1 Knowledge Deficit PT Goal 1 Goal Pt to be IND with issued HEP Target Visit 8 PT Problem 2 PT Problem #2 Pain PT Goal 1 Goal Pt to report neck and [place] arm pain no greater than 3/10 in the last week Target Visit 8 PT Goal 2 Goal Pt to report 75% improvement in overall symptoms. Target Visit 8 PT Problem 3 PT Problem #3 Pain PT Goal 1 Goal Pt to report no pain with active shoulder ROM. Target Visit 8 PT Goal 2 Goal Pt to report no increase pain with resisted shoulder motions Target Visit 8 PT Problem 4 PT Problem #4 Impaired Strength PT Goal 1 Goal Pt to be able to lift and carry 20lb from ground level without an increase in symptoms. Target Visit 8 PT Problem 5 PT Problem #5 Impaired Sensation PT Goal 1 Goal Pt to decline altered sensations in the last week Target Visit 8
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
--- NOTE | 2023-04-01 14:03 | PCPTNOTE ---
Pt suelled appt today because she had to go out of town unexpectedly.
--- NOTE | 2023-04-13 15:02 | PCPTNOTE ---
Pt's daughter had appt at same time as pt.
--- NOTE | 2023-04-14 12:49 | PCPTNOTE ---
Patient called & cancelled scheduled appointment this date due to not being able to get off work today.
--- NOTE | 2023-04-15 14:15 | PTOPPROG ---
Assessment and note entered by Inocencia Rivero, PT, DPT Evaluation Information Assessment Status Progress Diagnosis cervical radiculopathy Subjective Information Pt states she has been in a lot of pain for the last couple of weeks. She states it is worse since starting therapy. She has an injection in a couple of weeks. She states her nerve pain into her R arm has improved but it feels like the pain in the neck is getting a little more severe. Pt states her exercises are helpful when she is in pain. Assessment PT Clinical Summary Olga presents to therapy today for her progress report following 6 visits of skilled therapy to treat her diagnosis of cervical radiculopathy. She demonstrates improve active cervical ROM in all directions. She continues so have articular symptoms but these are decreasing. Continuation of skilled therapy services are indicated to improve posture and body mechanics, decreased peripheral symptoms, and to return to PLOF. She reports a 36% disability on the Neck Oswesty index. Plan of Care Interventions Electrical Stimulation,Hot Pack/Cold Pack,Manual Therapy,Mechanical Traction,Neuro Re-education, Patient/Caregiver Educati,Therapeutic Activities, Therapeutic Exercise PT Services Indicated Yes Treatment Frequency and 1x/wk for 4 visits Duration These treatments will address the objective and functional deficits as defined above. The patient will be advanced safely and appropriately in order for the patient to progress towards his/her prior level of function. Additional exercises will be introduced and as well as a comprehensive home exercise program upon discharge, if needed, ?to ensure carryover of functional gains achieved in the clinic. This treatment plan has been reviewed and agreement upon by the patient.
--- NOTE | 2023-05-13 14:03 | PCPTNOTE ---
Patient did not show up for scheduled progress report this date. Called and LVM with instructions to reschedule if needed.
--- NOTE | 2023-06-09 11:30 | PTOPDC ---
Assessment and note entered by Inocencia Rivero, PT, DPT Evaluation Information Assessment Status Discharge - Pt Not Presen Diagnosis cervical radiculopathy Subjective Information Pt did not show up for her appointment on 05/13/23 . She was called at that time and given follow up instructions, she has not contacted the clinic at this time. Assessment PT Clinical Summary Pt completed 8 visits of skilled therapy from 03/18 to 05/13/23. She will be discharged at this time. If she needs additional therapy, will need a new order.
== END 2023-06-09 13:01 | disposition home or self-care (01) ==
LOC: ANHGOSHPT 13:15
PROVIDERS: PCP Family Medicine; Visit Provider Anesthesiology Pain Medicine
DX: M47.812 Spondylosis without myelopathy or radiculopathy, cervical region (principal); M54.2 Cervicalgia; M54.12 Radiculopathy, cervical region; M54.42 Lumbago with sciatica, left side
CPT/HCPCS: 97012; 97110; 97112; 97161; 97530; 99199